=== PATIENT | male | born 1985 | race Caucasian/White ===

== ENCOUNTER 2017-03-26 08:18 | Emergency (ER) | payer SELFPAY ==
--- NOTE | 2017-03-26 08:51 | EDM.PDOC ---
ED HPI EYE COMPLAINT - General Chief Complaint: Eye Problems Stated Complaint: EYE Time Seen by Provider: 03/26/17 08:40 Source: Reports: Patient History Limitations: Reports: No limitations - History of Present Illness INITIAL COMMENTS - FREE TEXT/NARRATIVE: History of present illness: [] Patient has swelling of his right upper eyelid that started last night the he woke up with his eyelid swollen shut. He denies any itching or drainage. He has no visual deficits. She also denies any fevers or chills. Review of systems: As per history of present illness and below otherwise all systems reviewed and negative. Past medical history: As per history of present illness and as reviewed below otherwise noncontributory. Surgical history: As per history of present illness and as reviewed below otherwise noncontributory. Social history: No reported history of drug or alcohol abuse. Family history: As per history of present illness and as reviewed below otherwise noncontributory. Physical exam: General: Well developed, well nourished in NAD HEENT: Atraumatic, normocephalic, pupils reactive, negative for conjunctival pallor or scleral icterus, mucous membranes moist, throat clear, neck supple, nontender, trachea midline. Upper right eyelid with erythema and diffuse edema there is no abscess noted Lungs: Clear to auscultation, breath sounds equal bilaterally, chest nontender. Heart: S1S2, regular, negative for clicks, rubs, or JVD. Abdomen: Soft, nondistended, nontender. Negative for masses or hepatosplenomegaly. Negative for costovertebral tenderness. Pelvis: Stable nontender. Genitourinary: Deferred. Rectal: Deferred. Extremities: Atraumatic, negative for cords or calf pain. Neurovascular unremarkable. Neuro: Awake, alert, oriented. Cranial nerves II through XII unremarkable. Cerebellum unremarkable. Motor and sensory unremarkable throughout. Exam nonfocal. Diagnostics: [] Therapeutics: [] Impression: [] Right upper eyelid stye Plan: [] Warm compresses followup ophthalmology as needed Definitive disposition and diagnosis as appropriate pending reevaluation and review of above. - Related Data Allergies/ADRs: Allergies No Known Allergies Allergy (Verified 03/26/17 08:24) Home Meds: Ambulatory Orders Medication Instructions Recorded Confirmed . [No Known Home Meds] 01/19/15 03/26/17 Past Medical History - Past Health History Medical/Surgical History: Denies Medical/Surgical History Social & Family History - Tobacco Use Smoking Status *Q: Current Every Day Smoker Years of Tobacco use: 10 Packs/Tins Daily: 1 Second Hand Smoke Exposure: Yes - Alcohol Use Days Per Week of Alcohol Use: 5 Number of Drinks Per Day: 3 Total Drinks Per Week: 15 - Recreational Drug Use Recreational Drug Use: No ED ROS GENERAL - Review of Systems Review Of Systems: See Below (See history of present illness) ED EXAM GENERAL W FULL EYE - Physical Exam Exam: See Below (See history of present illness) Course - Vital Signs Last Recorded V/S: Last Vital Signs Temp 37.1 C 03/26/17 08:25 Pulse 88 03/26/17 08:25 Resp 18 03/26/17 08:25 BP 133/83 03/26/17 08:25 Pulse Ox 99 03/26/17 08:25 Departure - Departure Time of Disposition: 08:49 Disposition: Home, Self-Care 01 Condition: good Clinical Impression: Hordeolum externum (stye) Qualifiers: Laterality: right Eyelid: upper Qualified Code(s): H00.011 - Hordeolum externum right upper eyelid Forms: ED Department Discharge Additional Instructions: The following information is given to patients seen in the emergency department who are being discharged to home. This information is to outline your options for follow-up care. We provide all patients seen in our emergency department with a follow-up referral. The need for follow-up, as well as the timing and circumstances, are variable depending upon the specifics of your emergency department visit. If you don't have a primary care physician on staff, we will provide you with a referral. We always advise you to contact your personal physician following an emergency department visit to inform them of the circumstance of the visit and for follow-up with them and/or the need for any referrals to a consulting specialist. The emergency department will also refer you to a specialist when appropriate. This referral assures that you have the opportunity for follow-up care with a specialist. All of these measure are taken in an effort to provide you with optimal care, which includes your follow-up. Under all circumstances we always encourage you to contact your private physician who remains a resource for coordinating your care. When calling for follow-up care, please make the office aware that this follow-up is from your recent emergency room visit. If for any reason you are refused follow-up, please contact the [facility] Emergency Department at and asked to speak to the emergency department charge nurse. [address] [address]
[2017-03-26 09:51] VITALS: BP 126/81
== END 2017-03-26 09:04 | disposition home or self-care (01) ==
LOC: MW.ED 08:18
DX: H00.011 Hordeolum externum right upper eyelid (principal); F17.210 Nicotine dependence, cigarettes, uncomplicated
CPT/HCPCS: 99282

== ENCOUNTER 2018-04-01 14:38 | Emergency (ER) | payer SELFPAY ==
[2018-04-01] MEDS ORDERED: Lidocaine 1% 20 ML MDV INJECT ONE (14:49)
--- NOTE | 2018-04-01 15:09 | EDM.PDOC ---
ED HPI GENERAL MEDICAL PROBLEM - General Chief Complaint: Lower Extremity Injury/Pain Stated Complaint: RT LEG RED AND SWOLLEN Time Seen by Provider: 04/01/18 14:46 Source of Information: Reports: Patient History Limitations: Reports: No Limitations - History of Present Illness INITIAL COMMENTS - FREE TEXT/NARRATIVE: Presents reporting an abscess in the right inner thigh. Painful and now with the pus head and fluctuant. He does not have diabetes or any chronic disease. No fever or constitutional symptoms. Right Leg Pain Score (Numeric/FACES): 9 - Related Data Allergies Allergy/AdvReac Type Severity Reaction Status Date / Time No Known Allergies Allergy Verified 04/01/18 14:42 Home Meds: Home Meds . [No Known Home Meds] 01/19/15 [History] Past Medical History - Past Health History Medical/Surgical History: Denies Medical/Surgical History Social & Family History - Family History Family Medical History: Noncontributory - Tobacco Use Smoking Status *Q: Current Every Day Smoker Years of Tobacco use: 10 Packs/Tins Daily: 1 - Caffeine Use Caffeine Use: Reports: None - Recreational Drug Use Recreational Drug Use: No Review of Systems - Review of Systems Review Of Systems: ROS reveals no pertinent complaints other than HPI. ED EXAM, GENERAL - Physical Exam Exam: See Below Exam Limited By: No Limitations General Appearance: Alert, Other (Mild distress due to pain) Ears: Normal External Exam Nose: Normal Inspection Throat/Mouth: Normal Inspection Head: Atraumatic, Normocephalic Neck: Normal Inspection Respiratory/Chest: No Respiratory Distress Cardiovascular: Normal Peripheral Pulses GI/Abdominal: Soft Extremities: Normal Inspection Neurological: Alert, Oriented Psychiatric: Normal Affect, Normal Mood Skin Exam: Warm, Dry, Intact, Normal Color, No Rash, Other (Present a meter raised red warm abscess right proximal inner thigh with a pustule and fluctuant area in the center.) ED TRAUMA EXTREMITY PROCEDURES - Laceration/Wound Repair Right Thigh Lac/Wound Length In cm: 3 (Abscess incision and drainage with large amount of purulent drainage. Packed with quarter inch packing and covered with 4 x 4's) Course - Vital Signs Last Recorded V/S: Last Vital Signs Temp 36.2 C 04/01/18 14:49 Pulse 102 H 04/01/18 14:49 Resp 18 04/01/18 14:49 BP 148/95 H 04/01/18 14:49 Pulse Ox 100 04/01/18 14:49 - Orders/Labs/Meds Meds: Medications Discontinued Medications Generic Name Dose Route Start Last Admin Trade Name Nima PRN Reason Stop Dose Admin Lidocaine HCl 20 ml 04/01/18 14:49 04/01/18 15:03 Xylocaine 1% INJECT 04/01/18 14:50 20 ml ONETIME ONE Administration Departure - Departure Time of Disposition: 15:07 Disposition: Home, Self-Care 01 Condition: Good Clinical Impression: Abscess - Discharge Information Referrals: PCP,None [Primary Care Provider] - [facility] [Outside] [facility] [Outside] Additional Instructions: 1. Watch for expanding redness, fever elevated heart rate, report promptly 2. Warm moist compresses 3-4 times a day for 10-20 minutes 3. Wound will drain. Packing removal 2-3 days. If it falls out before that, leave it out.
[2018-04-01 15:56] VITALS: BP 146/94
== END 2018-04-01 15:31 | disposition home or self-care (01) ==
LOC: MW.ED 14:38
DX: L02.415 Cutaneous abscess of right lower limb (principal); F17.210 Nicotine dependence, cigarettes, uncomplicated
CPT/HCPCS: 99283

== ENCOUNTER 2019-12-10 12:27 | Emergency (ER) | payer BC, OTHER ==
--- NOTE | 2019-12-10 13:23 | EDM.PDOC ---
ED HPI GENERAL MEDICAL PROBLEM - General Chief Complaint: Respiratory Problem Stated Complaint: SHARP PAIN ON SIDE Time Seen by Provider: 12/10/19 13:10 Source of Information: Reports: Patient History Limitations: Reports: No Limitations - History of Present Illness INITIAL COMMENTS - FREE TEXT/NARRATIVE: HISTORY AND PHYSICAL: History of present illness: Patient is a 34-year-old male who presents to the emergency room with complaints of right lateral lower rib pain. He states over the past few days he has had pain "inside my ribs" that hurts when he coughs or takes in a deep breath. He is concerned he may have kidney injury or broken rib. Patient denies any fever, chills, headache, change in vision, syncope or near syncope. Denies any chest pain, back pain, shortness of breath or cough. Denies any abdominal pain, nausea, vomiting, diarrhea, constipation or dysuria. Has not noted any blood in urine or stool. Patient has been eating and drinking appropriately. Review of systems: As per history of present illness and below otherwise all systems reviewed and negative. Past medical history: As per history of present illness and as reviewed below otherwise noncontributory. Surgical history: As per history of present illness and as reviewed below otherwise noncontributory. Social history: See social history for further information Family history: As per history of present illness and as reviewed below otherwise noncontributory. Physical exam: General: Well-developed and well-nourished 39-year-old male. Alert and oriented. Nontoxic-appearing and in no acute distress. HEENT: Atraumatic, normocephalic, pupils equal and reactive bilaterally, negative for conjunctival pallor or scleral icterus, mucous membranes moist, TMs normal bilaterally, throat clear, neck supple, nontender, trachea midline. No drooling or trismus noted. No meningeal signs. No hot potato voice noted. Lungs: Clear to auscultation, breath sounds equal bilaterally, chest nontender. Heart: S1S2, regular rate and rhythm without overt murmur Abdomen: Soft, nondistended, nontender. Negative for masses or hepatosplenomegaly. Negative for costovertebral tenderness. Skin: Intact, warm, dry. No lesions or rashes noted. Extremities: Atraumatic, moves all extremities per self without difficulty or deficits, negative for cords or calf pain. Neurovascular unremarkable. Neuro: Awake, alert, oriented. Cranial nerves II through XII unremarkable. Cerebellum unremarkable. Motor and sensory unremarkable throughout. Exam nonfocal. Notes: Diagnostics are unremarkable. Supportive care measures were reviewed and discussed. Voices understanding and is agreeable to plan of care. Denies any further questions or concerns at this time. Diagnostics: UA, chest x-ray Therapeutics: None Prescription: Tylenol #3 (#10) Impression: Chest wall pain Plan: 1. Rest, ice, elevate the affected extremity. Please wear the splint as directed. 2. Tylenol and/or Ibuprofen as needed for pain management. 3. Follow up with the Orthopedic provider as we discussed. Return to the ED as needed and as discussed. Definitive disposition and diagnosis as appropriate pending reevaluation and review of above. R Side Pain Score (Numeric/FACES): 8 - Related Data Allergies Allergy/AdvReac Type Severity Reaction Status Date / Time No Known Allergies Allergy Verified 12/10/19 13:00 Home Meds: Home Meds . [No Known Home Meds] 01/19/15 [History] Past Medical History - Past Health History Medical/Surgical History: Denies Medical/Surgical History - Infectious Disease History Infectious Disease History: Reports: None Social & Family History - Family History Family Medical History: Noncontributory - Tobacco Use Smoking Status *Q: Current Every Day Smoker Years of Tobacco use: 15 Packs/Tins Daily: 1 - Caffeine Use Caffeine Use: Reports: Coffee ED ROS GENERAL - Review of Systems Review Of Systems: Comprehensive ROS is negative, except as noted in HPI. ED EXAM, GENERAL - Physical Exam Exam: See Below (See dictation) Course - Vital Signs Last Recorded V/S: Last Vital Signs Temp 98.8 F 12/10/19 13:00 Pulse 112 H 12/10/19 13:00 Resp 16 12/10/19 13:00 BP 138/92 H 12/10/19 13:00 Pulse Ox 95 12/10/19 13:00 - Orders/Labs/Meds Labs: Laboratory Tests 12/10/19 Range/Units 13:11 Urine Color YELLOW Urine Appearance SLT CLOUDY Urine pH 7.5 (5.0-8.0) Ur Specific [place] 1.025 (1.001-1.035) Urine Protein NEGATIVE (NEGATIVE) mg/dL Urine Glucose (UA) NEGATIVE (NEGATIVE) mg/dL Urine Ketones NEGATIVE (NEGATIVE) mg/dL Urine Occult Blood NEGATIVE (NEGATIVE) Urine Nitrite NEGATIVE (NEGATIVE) Urine Bilirubin NEGATIVE (NEGATIVE) Urine Urobilinogen 0.2 (<2.0) EU/dL Ur Leukocyte Esterase NEGATIVE (NEGATIVE) Departure - Departure Time of Disposition: 14:33 Disposition: Home, Self-Care 01 Clinical Impression: Chest wall pain - Discharge Information Instructions: Chest Wall Pain, [id number] Referrals: PCP,None [Primary Care Provider] - Forms: ED Department Discharge Additional Instructions: The following information is given to patients seen in the emergency department who are being discharged to home. This information is to outline your options for follow-up care. We provide all patients seen in our emergency department with a follow-up referral. The need for follow-up, as well as the timing and circumstances, are variable depending upon the specifics of your emergency department visit. If you don't have a primary care physician on staff, we will provide you with a referral. We always advise you to contact your personal physician following an emergency department visit to inform them of the circumstance of the visit and for follow-up with them and/or the need for any referrals to a consulting specialist. The emergency department will also refer you to a specialist when appropriate. This referral assures that you have the opportunity for follow-up care with a specialist. All of these measure are taken in an effort to provide you with optimal care, which includes your follow-up. Under all circumstances we always encourage you to contact your private physician who remains a resource for coordinating your care. When calling for follow-up care, please make the office aware that this follow-up is from your recent emergency room visit. If for any reason you are refused follow-up, please contact the [facility] Emergency Department at and asked to speak to the emergency department charge nurse. [facility] [address] [place] [id number] [address] [address] 1. Rest, ice, elevate the affected extremity. Please wear the splint as directed. 2. Tylenol and/or Ibuprofen as needed for pain management. 3. Follow up with the Orthopedic provider as we discussed. Return to the ED as needed and as discussed. Sepsis Event Note - Evaluation Sepsis Screening Result: No Definite Risk - Focused Exam Vital Signs: Vital Signs Temp Pulse Resp BP Pulse Ox 12/10/19 13:00 98.8 F 112 H 16 138/92 H 95 Date Exam was Performed: 12/10/19 Time Exam was Performed: 14:31
--- NOTE | 2019-12-10 14:22 | CR ---
Chest and right ribs: Frontal view of the chest was obtained as well as 2 views of the right lower ribs. Comparison: No previous chest or rib exam. Heart size and mediastinum are normal. Lungs are clear with no acute parenchymal change. No discrete right lower rib abnormality is appreciated. Impression: 1. Nothing acute is appreciated on frontal chest x-ray. 2. No discrete right lower rib abnormality is appreciated. Diagnostic code #1 This report was dictated in Mountain Standard Time
[2019-12-10 15:04] VITALS: BP 135/95; PULSE 95
== END 2019-12-10 15:05 | disposition home or self-care (01) ==
LOC: MW.ED 12:27
DX: R07.89 Other chest pain (principal); R07.81 Pleurodynia; F17.210 Nicotine dependence, cigarettes, uncomplicated
CPT/HCPCS: 71101-26-RT; 71101-RT; 81003; 99283-25

== ENCOUNTER 2019-12-10 23:19 | Emergency (ER) | payer BC ==
[2019-12-11 00:15] VITALS: BP 135/99; PULSE 125
[2019-12-11] MEDS ORDERED: Lidocaine/EPINEPHrine/Tetracaine Soln 1 ML TOP ONE (00:31)
[2019-12-11] MEDS ORDERED: Lidocaine 1% 50 ML MDV ONE (01:41)
[2019-12-11] MEDS ORDERED: Lidocaine 1% 10 ML MDV INJECT ONE (02:06)
--- NOTE | 2019-12-11 02:06 | EDM.PDOC ---
ED HPI GENERAL MEDICAL PROBLEM - General Chief Complaint: Skin Complaint Stated Complaint: SORE ON LEG Time Seen by Provider: 12/11/19 00:20 Source of Information: Reports: Patient - History of Present Illness INITIAL COMMENTS - FREE TEXT/NARRATIVE: Pt with reported pmh of recurrent abscess presents with red raised area on his left inner thigh. for the last 3 days. no fevers or any other symptoms. Right Upper Leg Pain Score (Numeric/FACES): 10 - Related Data Allergies Allergy/AdvReac Type Severity Reaction Status Date / Time No Known Allergies Allergy Verified 12/11/19 00:15 Home Meds: Home Meds Cephalexin [Keflex] 500 mg PO QID 7 Days #28 capsule 12/11/19 [Rx] Sulfamethoxazole/Trimethoprim [Bactrim Ds Tablet] 1 each PO BID 7 Days #14 tablet 12/11/19 [Rx] Past Medical History - Past Health History Medical/Surgical History: Denies Medical/Surgical History Psychiatric History: Reports: None - Infectious Disease History Infectious Disease History: Reports: Chicken Pox Social & Family History - Family History Family Medical History: Noncontributory - Tobacco Use Smoking Status *Q: Current Every Day Smoker Years of Tobacco use: 15 Packs/Tins Daily: 1 - Caffeine Use Caffeine Use: Reports: Coffee - Recreational Drug Use Recreational Drug Use: No ED ROS GENERAL - Review of Systems Review Of Systems: See Below Constitutional: Reports: No Symptoms Respiratory: Reports: No Symptoms Cardiovascular: Reports: No Symptoms GI/Abdominal: Reports: No Symptoms Skin: Reports: Erythema, Other (abcess) ED EXAM, SKIN/RASH Exam: See Below General Appearance: Alert, No Apparent Distress Head: Atraumatic, Normocephalic Respiratory/Chest: Lungs Clear, Normal Breath Sounds Cardiovascular: Regular Rate, Rhythm, Tachycardia GI/Abdominal: No Distention Neurological: Alert, Oriented, Normal Cognition Skin: Other (2x2cm area of fluctuance with surrounding erythema and induration) Location, Skin: Lower Extremity, Right (proximal inner thigh) Associated features: Warmth, Tenderness, Induration ED SKIN PROCEDURES - I&D Skin Prep: Chlorhexidine (Hibiciens) Local Anesthesia: Lidocaine: 1% Plain Local Anesthetic Volume: Other (8cc) Area Incised With: 11 Blade Drainage: Purulent, Bloody, Large Amount Probed to Break Up Loculations: Yes Packed With: 1/2 in. Iodoform Sterile Dressing: Adhesive Dressing, 4x4(s) Complications: No Course - Vital Signs Last Recorded V/S: Last Vital Signs Temp 97.6 F 12/11/19 02:26 Pulse 125 H 12/10/19 23:20 Resp 18 12/10/19 23:20 BP 135/99 H 12/10/19 23:20 Pulse Ox 94 L 12/10/19 23:20 - Orders/Labs/Meds Meds: Medications Discontinued Medications Generic Name Dose Route Start Last Admin Trade Name Nima PRN Reason Stop Dose Admin Lidocaine HCl Confirm 12/11/19 01:41 12/11/19 02:25 Xylocaine 1% Administered 12/11/19 01:42 50 ml Dose Administration 50 ml .ROUTE .STK-MED ONE Lidocaine HCl 50 ml 12/11/19 02:06 12/11/19 02:25 Xylocaine 1% INJECT 12/11/19 02:07 Not Given ONETIME ONE Lidocaine/Tetracaine 2 ml 12/11/19 00:31 12/11/19 00:41 Let Soln TOP 12/11/19 00:32 2 ml ONETIME ONE Administration - Re-Assessments/Exams Free Text/Narrative Re-Assessment/Exam: VS stable and PE described above with abscess. I&D performed with improvement and without complication. Abx prescribed for surrounding cellulitis. Pt comfortable with discharge. Strict return precautions discussed should symptoms worsen or any concerns arise. Departure - Departure Time of Disposition: 02:06 Disposition: Home, Self-Care 01 Condition: Good Clinical Impression: Cellulitis, Abscess - Discharge Information *PRESCRIPTION DRUG MONITORING PROGRAM REVIEWED*: Not Applicable *COPY OF PRESCRIPTION DRUG MONITORING REPORT IN PATIENT NORY: Not Applicable Prescriptions: Cephalexin [Keflex] 500 mg PO QID 7 Days #28 capsule Sulfamethoxazole/Trimethoprim [Bactrim Ds Tablet] 1 each PO BID 7 Days #14 tablet Instructions: Cellulitis, Adult, [id number], Incision and Drainage Referrals: PCP,None [Primary Care Provider] - Forms: ED Department Discharge Sepsis Event Note - Evaluation Sepsis Screening Result: No Definite Risk - Focused Exam Date Exam was Performed: 12/12/19 Time Exam was Performed: 20:41
== END 2019-12-11 02:26 | disposition home or self-care (01) ==
LOC: MW.ED 23:19
DX: L02.415 Cutaneous abscess of right lower limb (principal); L03.115 Cellulitis of right lower limb; F17.210 Nicotine dependence, cigarettes, uncomplicated
CPT/HCPCS: 10060; 99283; J2001; 99282

== ENCOUNTER 2021-10-11 13:52 | Emergency (ER) | payer BC, OTHER ==
--- NOTE | 2021-10-11 13:56 | EDM.PDOC ---
ED HPI GENERAL MEDICAL PROBLEM - General Time Seen by Provider: 10/11/21 13:53 Source of Information: Reports: Patient History Limitations: Reports: No Limitations - History of Present Illness INITIAL COMMENTS - FREE TEXT/NARRATIVE: 36-year-old male no past medical history presents for avulsion injury to left thumb. 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 He notes the bleeding was difficult to control prior to arrival. He is uncertain of his last tetanus vaccination. He has no other injuries. left thumb Pain Score (Numeric/FACES): 9 - Related Data Allergies Allergy/AdvReac Type Severity Reaction Status Date / Time No Known Allergies Allergy Verified 10/11/21 14:10 Home Meds: Home Meds . [No Known Home Meds] 10/11/21 [History] Past Medical History - Past Health History Medical/Surgical History: Denies Medical/Surgical History Psychiatric History: Reports: None - Infectious Disease History Infectious Disease History: Reports: Chicken Pox Social & Family History - Family History Family Medical History: No Pertinent Family History - Caffeine Use Caffeine Use: Reports: Coffee ED ROS GENERAL - Review of Systems Review Of Systems: Comprehensive ROS is negative, except as noted in HPI. ED EXAM, GENERAL - Physical Exam Exam: See Below Exam Limited By: No Limitations General Appearance: Alert, WD/WN, No Apparent Distress Ears: Hearing Grossly Normal Throat/Mouth: Normal Voice, No Airway Compromise Head: Atraumatic, Normocephalic Respiratory/Chest: No Respiratory Distress, No Accessory Muscle Use Cardiovascular: Normal Peripheral Pulses, Regular Rate, Rhythm Extremities: Other (avulsion injury to distal left 1st digit with oozing bleeding; does not appear to involve bone. No nailbed involvement. No laceration for repair) Neurological: Alert, Normal Gait Psychiatric: Normal Affect, Normal Mood Course - Vital Signs Last Recorded V/S: Last Vital Signs Temp 97.3 F 10/11/21 14:10 Pulse 87 10/11/21 14:10 Resp 18 10/11/21 14:10 BP 122/103 H 10/11/21 14:10 Pulse Ox 95 10/11/21 14:10 - Re-Assessments/Exams Free Text/Narrative Re-Assessment/Exam: 10/11/21 14:13 Patient declines tetanus vaccination. There is no laceration that can be repaired. Will extensively clean the wound and apply Surgicel. 10/11/21 14:24 Surgicell applied by me; nursing has applied dressing over the surgicel. Return precautions discussed Departure - Departure Time of Disposition: 14:24 Disposition: Home, Self-Care 01 Condition: Good Clinical Impression: Finger avulsion Qualifiers: Encounter type: initial encounter Qualified Code(s): S61.209A - Unspecified open wound of unspecified finger without damage to nail, initial encounter - Discharge Information Instructions: Deep Skin Avulsion Referrals: PCP,None [Primary Care Provider] - Additional Instructions: The following information is given to patients seen in the emergency department who are being discharged to home. This information is to outline your options for follow-up care. We provide all patients seen in our emergency department with a follow-up referral. The need for follow-up, as well as the timing and circumstances, are variable depending upon the specifics of your emergency department visit. If you don't have a primary care physician on staff, we will provide you with a referral. We always advise you to contact your personal physician following an emergency department visit to inform them of the circumstance of the visit and for follow-up with them and/or the need for any referrals to a consulting specialist. The emergency department will also refer you to a specialist when appropriate. This referral assures that you have the opportunity for follow-up care with a specialist. All of these measure are taken in an effort to provide you with optimal care, which includes your follow-up. Under all circumstances we always encourage you to contact your private physician who remains a resource for coordinating your care. When calling for follow-up care, please make the office aware that this follow-up is from your recent emergency room visit. If for any reason you are refused follow-up, please contact the [facility] Emergency Department at and asked to speak to the emergency department charge nurse. Please follow up with your primary care physician. If you do not have a primary care physician, see below: [facility] [address] [place] [id number] [facility] [address] [place] [id number] [facility] [address] [place] [id number] Sepsis Event Note (ED) - Focused Exam Vital Signs: Vital Signs Temp Pulse Resp BP Pulse Ox 10/11/21 14:10 97.3 F 87 18 122/103 H 95
[2021-10-11 14:38] VITALS: BP 124/98; PULSE 83
== END 2021-10-11 14:36 | disposition home or self-care (01) ==
LOC: MW.ED 13:52
DX: S61.002A Unspecified open wound of left thumb without damage to nail, initial encounter (principal); W26.0XXA Contact with knife, initial encounter; Y92.000 Kitchen of unspecified non-institutional (private) residence as the place of occurrence of the external cause
CPT/HCPCS: 99282

== ENCOUNTER 2021-12-08 09:36 | Emergency (ER) | payer SELFPAY ==
[2021-12-08] MEDS ORDERED: Lidocaine 1% PF 2 ML SDV INJECT ONE (10:00)
[2021-12-08 10:39] VITALS: BP 147/91; PULSE 108
== END 2021-12-08 10:40 | disposition home or self-care (01) ==
LOC: MW.ED 09:36
DX: L03.317 Cellulitis of buttock (principal); L02.31 Cutaneous abscess of buttock; Z72.0 Tobacco use
CPT/HCPCS: 10060; 99283-25

== ENCOUNTER 2022-07-29 18:27 | Emergency (ER) | payer SELFPAY ==
[2022-07-29] MEDS ORDERED: Ondansetron 4 MG/2 ML SDV IVPUSH ONE (19:07)
[2022-07-29] MEDS ORDERED: Ondansetron 4 MG Tab.DIS PO ONE (19:07)
[2022-07-29] MEDS ORDERED: Ketorolac 30 MG/ML SDV IVPUSH ONE (19:07)
[2022-07-29] MEDS ORDERED: HYDROmorphone 1 MG/ML Syringe IVPUSH ONE (19:07)
[2022-07-29] MEDS ORDERED: Sodium Chloride 0.9% 1,000 ML IV ONE (19:07)
[2022-07-29] MEDS ORDERED: Clindamycin Phosphate in D5W 600 MG in Premix Bag 1 BAG IV ONE ×2 (19:08)
[2022-07-29] MEDS ORDERED: Lidocaine 1% 5 ML VIAL INJECT ONE (19:32)
[2022-07-29] MEDS ORDERED: Iopamidol 755 Mg/ML 100 ML Bottle IVPUSH ONE (20:25)
[2022-07-29 20:34] LABS: CARBON DIOXIDE,CO2 25.2 mmol/L (21.0-32.0); POTASSIUM,K 3.7 mmol/L (3.5-5.1)
[2022-07-29 22:36] VITALS: BP 128/70; PULSE 78
== END 2022-07-29 22:35 | disposition home or self-care (01) ==
LOC: MW.ED 18:27
DX: L03.115 Cellulitis of right lower limb (principal)
CPT/HCPCS: 10060; 36415; 74177; 80053; 85025; 87070; 87205; 96365; 96375; 99284; J1170; J1885; J2405; J3490; J7030; Q9967; 87075